=== PATIENT | female | born 1935 | race Caucasian/White ===

== ENCOUNTER 2020-05-14 10:18 | Inpatient (IN) | payer BC, SELFPAY ==
[~2020-05-14] VITALS: Ht 167.6 cm; Wt 76.7 kg
[2020-05-14 10:18] VITALS: BP_SYST 145
[2020-05-14] MEDS ORDERED: NITROGLYCERIN 1 INCH (GM) OINT. TP ONE (10:30)
[2020-05-14] MEDS ORDERED: ENALAPRILAT DIHYDRATE 1.25 MG/ML VIAL IVP ONE (10:30)
[2020-05-14] MEDS ORDERED: FUROSEMIDE 40 MG/4 ML VIAL IVP ONE (10:30)
[2020-05-14] MEDS ORDERED: FUROSEMIDE 40 MG/4 ML VIAL ONE (10:54)
[2020-05-14] MEDS ORDERED: NITROGLYCERIN 1 INCH (GM) OINT. ONE (10:56)
[2020-05-14 11:03] LABS: BASOPHILS # (AUTO) 0.1 K/uL (0.0-0.2); BASOPHILS % (AUTO) 0.7 % (0.0-2.0); EOSINOPHILS % (AUTO) 0.5 % (0.0-4.0); HEMATOCRIT 42.8 % (36-48); HEMOGLOBIN 14.2 g/dL (12.0-16.0); LYMPHOCYTES # (AUTO) 0.5 K/uL (1.0-5.5); LYMPHOCYTES % (AUTO) 6.2 % (20.5-51.5); MEAN CORPUSCULAR HEMOGLOBIN 30 pg (27-31); MEAN CORPUSCULAR HGB CONC 33 % (32-36); MEAN CORPUSCULAR VOLUME 89 fL (79.0-98.0); MONOCYTES # (AUTO) 0.3 K/uL (0.0-1.0); MONOCYTES % (AUTO) 3.7 % (1.7-9.3); NEUTROPHILS # (AUTO) 7.5 K/uL (1.8-7.7); NEUTROPHILS % (AUTO) 88.9 % (40.0-70.0); PLATELET COUNT (AUTO) 158 K/uL (130-430); RED CELL DISTRIBUTION WIDTH 16.5 % (9.0-15.0); WHITE BLOOD COUNT (AUTO) 8.4 K/uL (4.8-10.8)
[2020-05-14 11:34] LABS: ANION GAP 7 (5-15); CALCIUM 8.9 mg/dL (8.4-11.0); CHLORIDE 97 mmol/L (98-107); CREATININE 1.78 mg/dL (0.55-1.30); SODIUM SERUM 131 mmol/L (136-145); UREA NITROGEN, BLOOD 41 mg/dL (8-21)
[2020-05-14] MEDS ORDERED: ENALAPRILAT DIHYDRATE 1.25 MG/ML VIAL ONE (11:36)
[2020-05-14 11:38] LABS: ASPARTATE AMINOTRANSFERASE 17 U/L (10-37); GLUCOSE 528 mg/dL (70-99); TOTAL BILIRUBIN 0.8 mg/dL (0.0-1.0)
[2020-05-14 11:39] LABS: ALANINE AMINOTRANSFERASE 22 U/L (12-78); ALBUMIN 3.2 g/dL (3.4-4.8)
[2020-05-14] MEDS ORDERED: INSULIN REGULAR, HUMAN 10 UNITS/0.1 ML INJ IVP ONE (11:45)
[2020-05-14] MEDS ORDERED: ALBUTEROL SULFATE 0.083% 2.5 MG/3 ML VIAL.NEB INH ONE (12:45)
[2020-05-14] MEDS ORDERED: IPRATROPIUM BROM 0.5 MG/2.5 ML VIAL.NEB (ATROVENT) INH PRN (12:45)
[2020-05-14] MEDS ORDERED: DEXTROSE 50% JECT 50 ML DISP.SYRIN IVP PRN (12:45)
[2020-05-14] MEDS ORDERED: ALBUTEROL SULFATE 0.083% 2.5 MG/3 ML VIAL.NEB INH PRN (12:45)
[2020-05-14] MEDS: ALBUTEROL SULFATE 0.083% 2.5 MG/3 ML VIAL.NEB INH SCH (15:55)
[2020-05-14] MEDS: IPRATROPIUM BROM 0.5 MG/2.5 ML VIAL.NEB (ATROVENT) INH SCH (15:55)
[2020-05-14] MEDS: INSULIN REGULAR, HUMAN 100 UNITS/ML, 10 ML VIAL (humuLIN R) SUBCUT PRN (19:02)
[2020-05-14] MEDS ORDERED: METO-442 PO (19:20)
[2020-05-14] MEDS ORDERED: GLIP10TA11 PO (19:20)
[2020-05-14] MEDS ORDERED: PANT20TA2 PO (19:20)
[2020-05-14] MEDS ORDERED: LIP10 PO (19:20)
[2020-05-14] MEDS ORDERED: ASA81 PO (19:20)
[2020-05-14] MEDS ORDERED: LISI10TA5 PO (19:20)
[2020-05-14] MEDS ORDERED: MIRA50TA PO (19:20)
[2020-05-14] MEDS ORDERED: CYAN100010 PO (19:20)
[2020-05-14] MEDS: cefTRIAXone 1 GM IVPB PREMIX 50 ML IV SCH ×2 (19:30→22:50)
[2020-05-14] MEDS: FUROSEMIDE 40 MG/4 ML VIAL IVP SCH (21:40)
[2020-05-15] MEDS: INSULIN REGULAR, HUMAN 100 UNITS/ML, 10 ML VIAL (humuLIN R) SUBCUT PRN ×4 (00:37→23:47)
[2020-05-15] MEDS: ALBUTEROL SULFATE 0.083% 2.5 MG/3 ML VIAL.NEB INH SCH ×5 (07:00→23:00)
[2020-05-15] MEDS: IPRATROPIUM BROM 0.5 MG/2.5 ML VIAL.NEB (ATROVENT) INH SCH ×5 (07:00→23:00)
[2020-05-15] MEDS ORDERED: INSULIN REGULAR, HUMAN 10 UNITS/0.1 ML INJ ONE (07:10)
[2020-05-15 08:01] LABS: BASOPHILS # (AUTO) 0.1 K/uL (0.0-0.2); BASOPHILS % (AUTO) 0.7 % (0.0-2.0); EOSINOPHILS # (AUTO) 0.2 K/uL (0.0-0.4); EOSINOPHILS % (AUTO) 1.7 % (0.0-4.0); HEMATOCRIT 45.1 % (36-48); LYMPHOCYTES # (AUTO) 1.2 K/uL (1.0-5.5); MEAN CORPUSCULAR HEMOGLOBIN 29 pg (27-31); MEAN CORPUSCULAR HGB CONC 33 % (32-36); MEAN CORPUSCULAR VOLUME 89 fL (79.0-98.0); MONOCYTES # (AUTO) 0.5 K/uL (0.0-1.0); MONOCYTES % (AUTO) 6.1 % (1.7-9.3); NEUTROPHILS # (AUTO) 6.8 K/uL (1.8-7.7); NEUTROPHILS % (AUTO) 77.5 % (40.0-70.0); PLATELET COUNT (AUTO) 163 K/uL (130-430); RED CELL DISTRIBUTION WIDTH 16.4 % (9.0-15.0); WHITE BLOOD COUNT (AUTO) 8.7 K/uL (4.8-10.8)
[2020-05-15 08:45] LABS: ALANINE AMINOTRANSFERASE 16 U/L (12-78); ALBUMIN 3.3 g/dL (3.4-4.8); ANION GAP 7 (5-15); ASPARTATE AMINOTRANSFERASE 19 U/L (10-37); CALCIUM 9.6 mg/dL (8.4-11.0); CHLORIDE 101 mmol/L (98-107); CREATININE 1.44 mg/dL (0.55-1.30); GLUCOSE 226 mg/dL (70-99); POTASSIUM 4.1 mmol/L (3.5-5.1); SODIUM SERUM 140 mmol/L (136-145); TOTAL BILIRUBIN 1.1 mg/dL (0.0-1.0); UREA NITROGEN, BLOOD 38 mg/dL (8-21)
[2020-05-15] MEDS: lisinopriL 5 MG TABLET PO SCH (09:00)
[2020-05-15] MEDS: METOPROLOL SUCCINATE 50 MG TAB.SR.24H (TOPROL XL) PO SCH (09:00)
[2020-05-15] MEDS: FUROSEMIDE 40 MG/4 ML VIAL IVP SCH ×2 (09:00→22:23)
[2020-05-15] MEDS ORDERED: FUROSEMIDE 40 MG/4 ML VIAL ONE (11:39)
[2020-05-15] MEDS ORDERED: ASPIRIN 81 MG TAB.CHEW ONE (11:39)
[2020-05-15] MEDS: PANTOPRAZOLE SODIUM 40 MG TAB PO SCH (14:44)
[2020-05-15] MEDS: ASPIRIN 81 MG TAB.CHEW PO SCH (14:44)
[2020-05-15] MEDS: ATORVASTATIN 10 MG TABLET PO SCH (14:44)
[2020-05-15 15:05] VITALS: BP_SYST 151
[2020-05-15 17:04] VITALS: BP_SYST 151
[2020-05-15 20:00] VITALS: BP_SYST 138
[2020-05-15] MEDS ORDERED: cefTRIAXone 1 GM IVPB PREMIX 50 ML IV ONE (22:40)
[2020-05-16] MEDS: IPRATROPIUM BROM 0.5 MG/2.5 ML VIAL.NEB (ATROVENT) INH SCH ×4 (03:00→16:17)
[2020-05-16] MEDS: ALBUTEROL SULFATE 0.083% 2.5 MG/3 ML VIAL.NEB INH SCH ×4 (03:00→16:17)
[2020-05-16] MEDS: INSULIN REGULAR, HUMAN 100 UNITS/ML, 10 ML VIAL (humuLIN R) SUBCUT PRN ×3 (06:51→17:23)
[2020-05-16 07:30] VITALS: BP_SYST 115
[2020-05-16 09:21] LABS: ALANINE AMINOTRANSFERASE 20 U/L (12-78); ALBUMIN 3.3 g/dL (3.4-4.8); ANION GAP 11 (5-15); ASPARTATE AMINOTRANSFERASE 24 U/L (10-37); CALCIUM 9.1 mg/dL (8.4-11.0); CHLORIDE 99 mmol/L (98-107); CREATININE 1.72 mg/dL (0.55-1.30); GLUCOSE 280 mg/dL (70-99); POTASSIUM 4.2 mmol/L (3.5-5.1); SODIUM SERUM 137 mmol/L (136-145); UREA NITROGEN, BLOOD 34 mg/dL (8-21)
[2020-05-16] MEDS: INSULIN GLARGINE 100 UNITS/ML 10 ML VIAL SUBCUT SCH (09:36)
[2020-05-16] MEDS: PANTOPRAZOLE SODIUM 40 MG TAB PO SCH (09:51)
[2020-05-16] MEDS: FUROSEMIDE 40 MG/4 ML VIAL IVP SCH ×2 (09:51→21:12)
[2020-05-16] MEDS: ATORVASTATIN 10 MG TABLET PO SCH (09:51)
[2020-05-16] MEDS: POTASSIUM CHLORIDE 8 MEQ TABLET.SA PO SCH (09:51)
[2020-05-16] MEDS: ASPIRIN 81 MG TAB.CHEW PO SCH (09:51)
[2020-05-16] MEDS: METOPROLOL SUCCINATE 50 MG TAB.SR.24H (TOPROL XL) PO SCH (09:51)
[2020-05-16] MEDS: lisinopriL 5 MG TABLET PO SCH (09:51)
[2020-05-16 11:37] VITALS: BP_SYST 132
[2020-05-16] MEDS ORDERED: cefTRIAXone 1 GM IVPB PREMIX 50 ML IV SCH (12:00)
[2020-05-16] MEDS ORDERED: AZITHROMYCIN 250 MG in NS 250 ML IV SCH (13:00)
[2020-05-16 20:30] VITALS: BP_SYST 112
[2020-05-17] MEDS: INSULIN REGULAR, HUMAN 100 UNITS/ML, 10 ML VIAL (humuLIN R) SUBCUT PRN ×3 (00:24→17:59)
[2020-05-17 00:27] VITALS: BP_SYST 110
[2020-05-17 06:34] LABS: BASOPHILS # (AUTO) 0.1 K/uL (0.0-0.2); BASOPHILS % (AUTO) 0.6 % (0.0-2.0); EOSINOPHILS # (AUTO) 0.2 K/uL (0.0-0.4); EOSINOPHILS % (AUTO) 2.1 % (0.0-4.0); HEMATOCRIT 38.5 % (36-48); HEMOGLOBIN 12.7 g/dL (12.0-16.0); LYMPHOCYTES # (AUTO) 1.3 K/uL (1.0-5.5); LYMPHOCYTES % (AUTO) 13.5 % (20.5-51.5); MEAN CORPUSCULAR HEMOGLOBIN 29 pg (27-31); MEAN CORPUSCULAR HGB CONC 33 % (32-36); MEAN CORPUSCULAR VOLUME 89 fL (79.0-98.0); MONOCYTES # (AUTO) 0.7 K/uL (0.0-1.0); MONOCYTES % (AUTO) 7.5 % (1.7-9.3); NEUTROPHILS # (AUTO) 7.3 K/uL (1.8-7.7); NEUTROPHILS % (AUTO) 76.3 % (40.0-70.0); PLATELET COUNT (AUTO) 161 K/uL (130-430); RED BLOOD CELL COUNT(AUTO) 4.34 MIL/uL (4.2-6.2); RED CELL DISTRIBUTION WIDTH 16.5 % (9.0-15.0); WHITE BLOOD COUNT (AUTO) 9.6 K/uL (4.8-10.8)
[2020-05-17] MEDS: ALBUTEROL SULFATE 0.083% 2.5 MG/3 ML VIAL.NEB INH SCH ×3 (07:45→15:36)
[2020-05-17] MEDS: IPRATROPIUM BROM 0.5 MG/2.5 ML VIAL.NEB (ATROVENT) INH SCH ×2 (07:45→15:36)
[2020-05-17 08:00] VITALS: BP_SYST 108
[2020-05-17 08:22] LABS: ALANINE AMINOTRANSFERASE 19 U/L (12-78); ANION GAP 8 (5-15); CALCIUM 9.2 mg/dL (8.4-11.0); CHLORIDE 98 mmol/L (98-107); CREATININE 1.71 mg/dL (0.55-1.30); GLUCOSE 242 mg/dL (70-99); POTASSIUM 4.5 mmol/L (3.5-5.1); SODIUM SERUM 135 mmol/L (136-145); TOTAL BILIRUBIN 0.8 mg/dL (0.0-1.0); UREA NITROGEN, BLOOD 41 mg/dL (8-21)
[2020-05-17] MEDS ORDERED: ALBMDI INH (09:15)
[2020-05-17] MEDS ORDERED: AZIT250T PO (09:15)
[2020-05-17] MEDS ORDERED: FURO-149 PO (09:15)
[2020-05-17] MEDS ORDERED: POTA8TAB4 PO (09:15)
[2020-05-17 10:05] LABS: ASPARTATE AMINOTRANSFERASE 43 U/L (10-37)
[2020-05-17] MEDS ORDERED: POTASSIUM CHLORIDE 8 MEQ TABLET.SA PO ONE (10:45)
[2020-05-17] MEDS: POTASSIUM CHLORIDE 8 MEQ TABLET.SA PO SCH (10:51)
[2020-05-17] MEDS: ASPIRIN 81 MG TAB.CHEW PO SCH (10:51)
[2020-05-17] MEDS: METOPROLOL SUCCINATE 50 MG TAB.SR.24H (TOPROL XL) PO SCH (10:51)
[2020-05-17] MEDS: lisinopriL 5 MG TABLET PO SCH (10:52)
[2020-05-17] MEDS: PANTOPRAZOLE SODIUM 40 MG TAB PO SCH (10:52)
[2020-05-17] MEDS: ATORVASTATIN 10 MG TABLET PO SCH (10:52)
[2020-05-17] MEDS: FUROSEMIDE 40 MG/4 ML VIAL IVP SCH (10:53)
[2020-05-17] MEDS: INSULIN GLARGINE 100 UNITS/ML 10 ML VIAL SUBCUT SCH (10:55)
[2020-05-17 16:00] VITALS: BP_SYST 103
[2020-05-17 16:46] VITALS: BP_SYST 108
[2020-05-17 17:33] VITALS: BP_SYST 103
== END 2020-05-17 18:15 | disposition home or self-care (01) | DRG 291 ==
LOC: SED 10:18 → SIC 12:15 → STU 18:30
PROVIDERS: ADMIT Internal Medicine; ATTEND Internal Medicine
PROC: 5A09357 Assistance with Respiratory Ventilation, Less than 24 Consecutive Hours, Continuous Positive Airway Pressure (ICD-10-PCS; principal; 2020-05-14)
DX: I11.0 Hypertensive heart disease with heart failure (principal); J18.9 Pneumonia, unspecified organism; J96.01 Acute respiratory failure with hypoxia; R65.11 Systemic inflammatory response syndrome (SIRS) of non-infectious origin with acute organ dysfunction; I48.20 Chronic atrial fibrillation, unspecified; N17.9 Acute kidney failure, unspecified; I50.43 Acute on chronic combined systolic (congestive) and diastolic (congestive) heart failure; I42.0 Dilated cardiomyopathy; E11.65 Type 2 diabetes mellitus with hyperglycemia; Z20.828 Contact with and (suspected) exposure to other viral communicable diseases; Z79.899 Other long term (current) drug therapy; Z95.2 Presence of prosthetic heart valve; Z95.5 Presence of coronary angioplasty implant and graft
CPT/HCPCS: 36415; 36600; 71045; 76770; 80053; 82550-TC; 82803-TC; 82962; 83880; 84484; 85025; 93005; 93306; 94640; 94660; 94760; 96374; 96375; 97163; 99291; G0378; J0456; J0696; J1815; J1940; J7050; J7613; U0003